=== PATIENT | male | born 1950 | race Caucasian/White ===

== ENCOUNTER 2017-08-24 11:49 | Observation (INO) | payer MEDICARE, OTHER ==
[~2017-08-24] VITALS: Ht 177.8 cm; Wt 100.0 kg
[~2017-08-24 11:49] MED LIST: LORT5TAB PO; OMEP20CA5 PO; PARO37.5 PO
[2017-08-24 11:56] VITALS: BP 196/99; PULSE 88; RESP 16; TEMP 98; O2SAT 98
--- NOTE | 2017-08-24 11:56 | PD ---
HPI Chief Complaint: Chest Pain Time Seen by Provider: 11:55 Travel History International Travel<30 days: No Contact w/Intl Traveler<30days: No Traveled to known affect area: No History of Present Illness HPI 66-year-old male came to the emergency room with left-sided chest pain that has been there since yesterday continuously. No aggravating or relieving factors identified. Patient describes the pain as a dull ache and rates it 5 out of 10. He says that the intensity is progressively worsening. He also started developing some dizziness and shortness of breath with it and hence decided to come in. Vital signs were stable. Patient had some similar symptoms a while ago but never came to the emergency room. He had a stress test done about 20 years ago which was negative. Does not have any history of coronary artery disease. He has history of hyperlipidemia but he is not taking any statin since he had some side effects when he was taking it and he stopped. No radiation of the pain. Patient is concerned from heart standpoint since there is a strong family history of heart attack. [facility] Past Medical History Narrative Medical List of his past medical, surgical, social and family history reviewed from the nursing note. Social History Tobacco Use: Yes Allergies-Medications (Allergen,Severity, Reaction): Coded Allergies: No Known Allergies (Verified Allergy, Unknown, 08/24/17) Comments No known drug allergies. Reported Meds & Prescriptions Reported Meds & Active Scripts Active No Active Prescriptions or Reported Medications Narrative Medication List of his home medications reviewed from the nursing note. Review of Systems Except as stated in HPI: all other systems reviewed are Neg Cardiovascular: Positive: Chest Pain or Discomfort Physical Exam Narrative GENERAL: Awake, alert, mild distress, anxious SKIN: Focused skin assessment warm/dry. HEAD: Atraumatic. Normocephalic. EYES: Pupils equal and round. No scleral icterus. No injection or drainage. ENT: No nasal bleeding or discharge. Mucous membranes pink and moist. NECK: Trachea midline. No JVD. CARDIOVASCULAR: Regular rate and rhythm. No murmur appreciated. RESPIRATORY: No accessory muscle use. Clear to auscultation. Breath sounds equal bilaterally. GASTROINTESTINAL: Abdomen soft, non-tender, nondistended. Hepatic and splenic margins not palpable. MUSCULOSKELETAL: No obvious deformities. No clubbing. No cyanosis. No edema. NEUROLOGICAL: Awake and alert. No obvious cranial nerve deficits. Motor grossly within normal limits. Normal speech. PSYCHIATRIC: Appropriate mood and affect; insight and judgment normal. Data Data Last Documented VS Vital Signs Date Time Temp Pulse Resp B/P (MAP) Pulse Ox O2 Delivery O2 Flow Rate FiO2 08/24/17 12:32 78 16 156/95 (115) 98 Room Air 139/85 (103) 08/24/17 11:56 98.0 Orders Orders Electrocardiogram (08/24/17 12:05) Basic Metabolic Panel (Bmp) (08/24/17 12:05) Complete Blood Count With Diff (08/24/17 12:05) Magnesium (Mg) (08/24/17 12:05) Prothrombin Time / Inr (Pt) (08/24/17 12:05) Troponin I (08/24/17 12:05) Ecg Monitoring (08/24/17 12:05) Bilateral Bp Monitoring (08/24/17 12:05) Iv Access Insert/Monitor (08/24/17 12:05) Oximetry (08/24/17 12:05) Oxygen Administration (08/24/17 12:05) Aspirin Chew (Aspirin Chew) (08/24/17 12:15) Sodium Chloride 0.9% Flush (Ns Flush) (08/24/17 12:15) Nitroglycerin Sl (Nitrostat Sl) (08/24/17 12:15) Chest, Pa & Lat (08/24/17 12:05) Admit Order (Ed Use Only) (08/24/17 13:11) Labs Laboratory Tests Test 08/24/17 12:27 White Blood Count 4.7 TH/MM3 Red Blood Count 4.99 MIL/MM3 Hemoglobin 14.4 GM/DL Hematocrit 44.3 % Mean Corpuscular Volume 88.7 FL Mean Corpuscular Hemoglobin 28.9 PG Mean Corpuscular Hemoglobin Concent 32.5 % Red Cell Distribution Width 13.1 % Platelet Count 162 TH/MM3 Mean Platelet Volume 8.1 FL Neutrophils (%) (Auto) 66.0 % Lymphocytes (%) (Auto) 21.5 % Monocytes (%) (Auto) 8.5 % Eosinophils (%) (Auto) 2.8 % Basophils (%) (Auto) 1.2 % Neutrophils # (Auto) 3.1 TH/MM3 Lymphocytes # (Auto) 1.0 TH/MM3 Monocytes # (Auto) 0.4 TH/MM3 Eosinophils # (Auto) 0.1 TH/MM3 Basophils # (Auto) 0.1 TH/MM3 CBC Comment DIFF FINAL Differential Comment Prothrombin Time 10.5 SEC Prothromb Time International Ratio 1.0 RATIO Blood Urea Nitrogen 14 MG/DL Creatinine 0.98 MG/DL Random Glucose 91 MG/DL Calcium Level 8.6 MG/DL Magnesium Level 2.3 MG/DL Sodium Level 141 MEQ/L Potassium Level 4.1 MEQ/L Chloride Level 109 MEQ/L Carbon Dioxide Level 25.3 MEQ/L Anion Gap 7 MEQ/L Estimat Glomerular Filtration Rate 77 ML/MIN Troponin I LESS THAN 0.02 NG/ML MDM Medical Decision Making Medical Screen Exam Complete: Yes Emergency Medical Condition: Yes Medical Record Reviewed: Yes Interpretation(s) Twelve-lead EKG was reviewed by me. Normal sinus rhythm, normal axis, nonspecific ST-T wave changes. Heart rate of 68 bpm. Differential Diagnosis ACS, non-STEMI Narrative Course 1 PM awaiting for the troponin. Rest of the blood test results are back and within normal limit. Chest x-ray appears to be within normal limits. Awaiting for the radiologist report. Patient was given 2 baby aspirins and 1 sublingual nitro. I have talked to him about admitting him in the chest pain center and he is agreeable to the decision. Procedures EKG Prior to Arrival: No Diagnosis Primary Impression: Chest pain Qualified Codes: R07.9 - Chest pain, unspecified Admitting Information Admitting Physician Requests: Observation Scripts No Active Prescriptions or Reported Meds Ivette Irving MD Aug 24, 2017 11:56
[2017-08-24] MEDS ORDERED: SODIUM CHLORIDE 0.9% FLUSH 10 ML FLUSH IVF PRN (12:15)
[2017-08-24] MEDS ORDERED: NITROGLYCERIN 0.4 MG SL 25 TABS/BTL SL ONE (12:15)
[2017-08-24] MEDS ORDERED: ASPIRIN 81 MG CHEW TAB PO ONE (12:15)
[2017-08-24 12:21] VITALS: O2SAT 98
[2017-08-24 12:32] VITALS: BP_SYST 139; BP_SYST 156; BP_DIAS 85; BP_DIAS 95; PULSE 78; RESP 16; O2SAT 98
[2017-08-24 12:38] LABS: AUTOMATED NEUTROPHIL # 3.1 TH/MM3 (1.8-7.7); BASOPHIL # 0.1 TH/MM3 (0-0.2); BASOPHIL % 1.2 % (0.0-2.0); EOSINOPHIL # 0.1 TH/MM3 (0-0.4); EOSINOPHIL % 2.8 % (0.0-4.0); HEMATOCRIT 44.3 % (39.0-51.0); HEMOGLOBIN 14.4 GM/DL (13.0-17.0); LYMPH % 21.5 % (9.0-44.0); MEAN CELL VOLUME 88.7 FL (80.0-100.0); MEAN CORPUSCULAR HEMOGLOBIN 28.9 PG (27.0-34.0); MEAN CORPUSCULAR HGB CONC 32.5 % (32.0-36.0); MEAN PLATELET VOLUME 8.1 FL (7.0-11.0); MONO % 8.5 % (0.0-8.0); MONOCYTE # 0.4 TH/MM3 (0-0.9); PLATELET COUNT 162 TH/MM3 (150-450); RED BLOOD COUNT 4.99 MIL/MM3 (4.50-5.90); RED CELL DISTRIBUTION WIDTH 13.1 % (11.6-17.2); WHITE BLOOD COUNT 4.7 TH/MM3 (4.0-11.0)
[2017-08-24 12:45] LABS: CHLORIDE 109 MEQ/L (98-107); SODIUM (NA) 141 MEQ/L (136-145)
[2017-08-24 12:47] LABS: CALCIUM 8.6 MG/DL (8.5-10.1)
[2017-08-24 12:48] LABS: BICARBONATE 25.3 MEQ/L (21.0-32.0); BLOOD UREA NITROGEN 14 MG/DL (7-18); GLUCOSE,RANDOM 91 MG/DL (74-106); MAGNESIUM 2.3 MG/DL (1.5-2.5); PROTHROMBIN TIME - PATIENT 10.5 SEC (9.8-11.6)
[2017-08-24 12:51] LABS: CREATININE 0.98 MG/DL (0.60-1.30); GLOMERULAR FILTRATION RATE 77 ML/MIN (>89)
[2017-08-24 12:56] LABS: TROPONIN I LESS THAN 0.02 NG/ML (0.02-0.05)
[2017-08-24] MEDS ORDERED: MORPHINE SULFATE 4 MG/ML INJ IV PUSH PRN (13:30)
[2017-08-24] MEDS ORDERED: ONDANSETRON HCL 4 MG/2 ML VIAL IV PUSH PRN (13:30)
[2017-08-24] MEDS ORDERED: ACETAMINOPHEN/HYDROcodone 325 MG/7.5 MG TAB PO PRN (13:30)
[2017-08-24] MEDS ORDERED: MORPHINE SULFATE 4 MG/ML INJ IV PUSH ONE (13:30)
[2017-08-24] MEDS ORDERED: ACETAMINOPHEN 500 MG CPLT PO PRN (13:30)
[2017-08-24] MEDS ORDERED: ONDANSETRON HCL 4 MG/2 ML VIAL IV PUSH ONE (13:30)
[2017-08-24] MEDS ORDERED: NITROGLYCERIN 0.4 MG SL 25 TABS/BTL SL PRN (13:30)
[2017-08-24] MEDS ORDERED: SODIUM CHLORIDE 0.9% FLUSH 10 ML FLUSH IV FLUSH PRN (13:30)
--- NOTE | 2017-08-24 13:44 | HHI.HP ---
[facility] Service [facility] Primary Care Physician No Primary Care Physician Admission Diagnosis Chest pain, rule out ACS Diagnoses: (1) Chest pain Diagnosis: Principal Chief Complaint: Chest pain Travel History International Travel<30 Days: No Contact w/Intl Traveler <30 Da: No Traveled to Known Affected Are: No History of Present Illness 66-year-old male with history of untreated hyperlipidemia who presented to the emergency department because of chest discomfort. Patient states that for the last 2 days he has had a constant crescendo type chest discomfort located in the left anterior chest that intermittently goes into his left shoulder. He states it is usually a 4/10 on a pain scale and can go as high as 6/10 on a pain scale. It has been relentless and has not improved with any medications. He states that it was persisted this morning and that he had an episode of nausea and lightheadedness every time he stood up so because of that reason he came to emergency department for evaluation. He denied any vomiting, diaphoresis, shortness of breath, dyspnea. Patient indicates that he has had previous cardiac workup done over 10 years ago where he indicates that they told him that he may have had a heart attack but could not find any damage. Patient had workup done emergency department and was unremarkable. It was recommended by ER physician that the patient be observed in the chest pain center for further recommendations Review of Systems Constitutional: COMPLAINS OF: Dizziness Cardiovascular: COMPLAINS OF: Chest pain Gastrointestinal: COMPLAINS OF: Nausea Except as stated in HPI: all other systems reviewed are Neg Past Family Social History Past Medical History Cervical radiculopathy Hyperlipidemia, untreated Past Surgical History Lumbar spine surgery Reported Medications No chronic medications Allergies: Coded Allergies: No Known Allergies (Verified Allergy, Unknown, 08/24/17) Family History Reviewed and significant for father with heart disease, mother at age 70 from myocardial infarction, he has 2 sisters and 2 brothers all of which have heart disease. Social History Patient denies any tobacco, alcohol or illicit drug Physical Exam Vital Signs Vital Signs Date Time Temp Pulse Resp B/P (MAP) Pulse Ox O2 Delivery O2 Flow Rate FiO2 08/24/17 12:32 78 16 156/95 (115) 98 Room Air 139/85 (103) 08/24/17 12:21 98 Room Air 08/24/17 12:21 98 Room Air 08/24/17 11:58 98 Room Air 08/24/17 11:56 98.0 88 16 196/99 (131) 98 Physical Exam GENERAL: Well-developed, well-nourished, in no acute distress. alert and orientated HEENT: Head is normocephalic without any lesions or masses noted. Facial features are symmetric. Eyes: Pupils equal round reactive to light. Extraocular muscles are intact. Conjunctivae were clear. Oropharyngeal: Pharynx without any erythema edema. Tongue is midline without deviation. Buccal mucosa is moist without any masses or lesions NECK: Supple without any masses. Trachea midline no deviation. No JVD, no bruits are appreciated CARDIAC: Regular rhythm, regular rate. S1/S2 are heard. No murmurs gallops or rubs. LUNGS: Clear to auscultation bilaterally. No wheeze, rhonchi or rales. No use of accessory muscles on inspiration or expiration. ABDOMEN: Soft, nontender. Nondistended. Bowel sounds heard in all 4 quadrants. No organomegaly or masses. Negative rebound, negative guarding EXTREMITIES: No edema, pulses are equal bilaterally. No cyanosis or clubbing NEUROLOGY: Mood and affect appear appropriate. Cranial nerves II through XII grossly intact. Muscle strength 5/5 in upper and lower extremities bilaterally. Deep tendon reflexes are 2+ in upper and lower extremities bilaterally. Laboratory Laboratory Tests Test 08/24/17 12:27 White Blood Count 4.7 Red Blood Count 4.99 Hemoglobin 14.4 Hematocrit 44.3 Mean Corpuscular Volume 88.7 Mean Corpuscular Hemoglobin 28.9 Mean Corpuscular Hemoglobin Concent 32.5 Red Cell Distribution Width 13.1 Platelet Count 162 Mean Platelet Volume 8.1 Neutrophils (%) (Auto) 66.0 Lymphocytes (%) (Auto) 21.5 Monocytes (%) (Auto) 8.5 Eosinophils (%) (Auto) 2.8 Basophils (%) (Auto) 1.2 Neutrophils # (Auto) 3.1 Lymphocytes # (Auto) 1.0 Monocytes # (Auto) 0.4 Eosinophils # (Auto) 0.1 Basophils # (Auto) 0.1 CBC Comment DIFF FINAL Differential Comment Prothrombin Time 10.5 Prothromb Time International Ratio 1.0 Blood Urea Nitrogen 14 Creatinine 0.98 Random Glucose 91 Calcium Level 8.6 Magnesium Level 2.3 Sodium Level 141 Potassium Level 4.1 Chloride Level 109 Carbon Dioxide Level 25.3 Anion Gap 7 Estimat Glomerular Filtration Rate 77 Troponin I LESS THAN 0.02 Result Diagram: 08/24/17 1227 08/24/17 1227 Caprini VTE Risk Assessment Caprini VTE Risk Assessment: No/Low Risk (score <= 1) Caprini Risk Assessment Model Point Value = 1 Point Value = 2 Point Value = 3 Point Value = 5 Age 41-60 Minor surgery BMI > 25 kg/m2 Swollen legs Varicose veins or History of unexplained or recurrent spontaneous Oral contraceptives or hormone replacement Sepsis (< 1 month) Serious lung disease, including pneumonia (< 1 month) Abnormal pulmonary function Acute myocardial infarction Congestive heart failure (< 1 month) History of inflammatory bowel disease Medical patient at bed rest Age 61-74 Arthroscopic surgery Major open surgery (> 45 min) Laparoscopic surgery (> 45 min) Malignancy Confined to bed (> 72 hours) Immobilizing plaster cast Central venous access Age >= 75 History of VTE Family history of VTE Factor V Leiden Prothrombin [id number] Lupus anticoagulant Anticardiolipin antibodies Elevated serum homocysteine Heparin-induced thrombocytopenia Other congenital or acquired thrombophilia Stroke (< 1 month) Elective arthroplasty Hip, pelvis, or leg fracture Acute spinal cord injury (< 1 month) Prophylaxis Regimen Total Risk Factor Score Risk Level Prophylaxis Regimen 0-1 Low Early ambulation 2 Moderate Order ONE of the following: *Sequential Compression Device (SCD) *Heparin 5000 units SQ BID 3-4 Higher Order ONE of the following medications: *Heparin 5000 units SQ TID *Enoxaparin/Lovenox 40 mg SQ daily (WT < 150 kg, CrCl > 30 mL/min) *Enoxaparin/Lovenox 30 mg SQ daily (WT < 150 kg, CrCl > 10-29 mL/min) *Enoxaparin/Lovenox 30 mg SQ BID (WT < 150 kg, CrCl > 30 mL/min) AND/OR *Sequential Compression Device (SCD) 5 or more Highest Order ONE of the following medications: *Heparin 5000 units SQ TID (Preferred with Epidurals) *Enoxaparin/Lovenox 40 mg SQ daily (WT < 150 kg, CrCl > 30 mL/min) *Enoxaparin/Lovenox 30 mg SQ daily (WT < 150 kg, CrCl > 10-29 mL/min) *Enoxaparin/Lovenox 30 mg SQ BID (WT < 150 kg, CrCl > 30 mL/min) AND *Sequential Compression Device (SCD) Assessment and Plan Assessment and Plan Chest pain, Patient with increased risk factors to include age, hyperlipidemia, family history of heart disease Thus far patient has been ruled out for acute coronary event with cardiac enzymes are negative since this has been a constant pain for over 2 days EKG did reveal myself and did show sinus rhythm without any ST elevations Myocardial perfusion study did not indicate any underlying ischemia Continue aspirin, nitroglycerin as needed, [place]/morphine for pain Hyperlipidemia, untreated Patient counseled on lifestyle modifications, patient states that he cannot take medications due to medication side effect DVT prevention Sequential compression devices Discharge disposition discharge home in stable condition Activity: Ad humza. Diet: Healthy heart diet Medication per medication reconciliation Follow-up with primary medical doctor in 1 week Problem Qualifiers (1) Chest pain: Qualified Codes: R07.9 - Chest pain, unspecified Yossi Howard Aug 24, 2017 13:44
--- NOTE | 2017-08-24 14:32 | RADRPT ---
EXAM DATE/TIME: 08/24/2017 12:17 [facility] COMPARISON: No previous studies available for comparison. INDICATIONS : Chest pain. MEDICAL HISTORY : None. SURGICAL HISTORY : None. ENCOUNTER: Initial ACUITY: 1 day PAIN SCORE: 6/10 LOCATION: chest Center FINDINGS: PA and lateral views of the chest demonstrate a normal-sized cardiac silhouette. There is no effusion , consolidation, or pneumothorax. The bones and soft tissues demonstrate no acute abnormality. CONCLUSION: No acute cardiopulmonary abnormality is identified. Satish Tiwari MD on August 24, 2017 at 14:28 Board Certified Radiologist. This report was verified electronically.
[2017-08-24 14:47] VITALS: PULSE 48
[2017-08-24 14:55] LABS: TROPONIN I LESS THAN 0.02 NG/ML (0.02-0.05)
[2017-08-24 15:00] VITALS: BP 148/79; PULSE 50; RESP 20; TEMP 96.1; O2SAT 97
[2017-08-24] MEDS ORDERED: REGADENOSON INJ 0.4 MG/5 ML SYR IV ONE (16:01)
--- NOTE | 2017-08-24 17:18 | RADRPT ---
EXAM DATE/TIME: 08/24/2017 15:39 [facility] COMPARISON: No previous studies available for comparison. INDICATIONS : Chest pain. Angina. DOSE: 26.2 mCi Tc99m Myoview at stress. 8.7 mCi Tc99m Myoview at rest. 0.4 mg Lexiscan STRESS SYMPTOMS: None noted. EJECTION FRACTION: 62% MEDICAL HISTORY : Hyperlipidemia. SURGICAL HISTORY : Lumbar spine surgery. ENCOUNTER: Initial ACUITY: 2 days PAIN SCALE: 5/10 LOCATION: Left chest TECHNIQUE: The patient underwent pharmacologic stress with infusion of prescribed dose. Continuous ECG tracing was monitored during stress. Gated SPECT imaging was performed after stress and conventional SPECT i maging was performed at rest. The examination was performed on a SPECT/CT scanner, both attenuation and non-corrected datasets were reviewed. FINDINGS: DISTRIBUTION: The maximum perfused segment at stress is in the anteroseptal wall. PERFUSION STUDY: The pattern of perfusion at stress is within normal limits. GATED STUDY: There is intact wall motion and thickening without hypokinetic or dyskinetic segments. CONCLUSION: 1. No significant stress-induced ischemia. 2. No focal wall motion abnormality with EF of 62%. RISK CATEGORY: Low (<1% Annual Mortality Rate) Kashmir De La Cruz MD on August 24, 2017 at 17:14 Board Certified Radiologist. This report was verified electronically.
[2017-08-24 17:21] VITALS: O2SAT 97
--- NOTE | 2017-08-24 17:37 | HHI.DCPOC ---
Discharge Care Plan Diagnosis: (1) Chest pain Goals to Promote Your Health * To prevent worsening of your condition and complications * To maintain your health at the optimal level Directions to Meet Your Goals Take your medications as prescribed Follow your dietary instruction Follow activity as directed Keep your appointments as scheduled Take your immunizations and boosters as scheduled If your symptoms worsen call your PCP, if no PCP go to Urgent Care Center or Emergency Room Smoking is Dangerous to Your Health. Avoid second hand smoke Call the 24-hour hour crisis hotline for domestic abuse at Yossi Howard Aug 24, 2017 17:37
--- NOTE | 2017-08-24 17:57 | TR ---
Date Performed: 08/24/2017 Time Performed: 16:15:05 DOCTOR: Susan Reese DRUG LIST: CLINICAL HISTORY: ANGINA REASON FOR TEST: Angina REASON FOR ENDING: OBSERVATION: CONCLUSION: Lexiscan stress test was performed under standard four minute protocol. Radionuclid e was injected one minute prior to ending the test. No electrocardiographic abormalities were present to suggest ischemia. Nuclear imaging and interpretation are pending. COMMENTS:
[2017-08-24 18:08] LABS: TROPONIN I LESS THAN 0.02 NG/ML (0.02-0.05)
[2017-08-24] MEDS ORDERED: SODIUM CHLORIDE 0.9% FLUSH 10 ML FLUSH IV FLUSH SCH (21:00)
[2017-08-25] MEDS ORDERED: ASPIRIN 325 MG TAB PO SCH (09:00)
--- NOTE | 2017-08-26 11:22 | EKG ---
Date Performed: 08/24/2017 Time Performed: 11:52:17 PTAGE: 66 years EKG: NORMAL Sinus rhythm Slight intraventricular conduction delay NORMAL ECG NO PREVIOUS TRACING DOCTOR: Dakota Messer Interpretating Date/Time 08/26/2017 12:45:36
--- NOTE | 2017-08-26 11:22 | EKG ---
Date Performed: 08/24/2017 Time Performed: 14:30:14 PTAGE: 66 years EKG: Sinus bradycardia Slight intraventricular conduction delay NORMAL ECG Since PREVIOUS TRACING , no significant change noted PREVIOUS TRACIN08/24/2017 11.52 DOCTOR: Dakota Messer Interpretating Date/Time 08/26/2017 11:22:25
--- NOTE | 2017-08-26 11:23 | EKG ---
Date Performed: 08/24/2017 Time Performed: 17:20:29 PTAGE: 66 years EKG: SINUS BRADYCARDIA SLIGHT INTRAVENTRICULAR CONDUCTION DELAY BORDERLINE ECG Since PREVIOUS TRACING , no significant change noted PREVIOUS TRACIN08/24/2017 14.30 DOCTOR: Dakota Messer Interpretating Date/Time 08/26/2017 11:22:43
== END 2017-08-24 18:30 | disposition home or self-care (01) ==
LOC: PHED 11:49 → PHEDA 13:11 → PH3B 13:46
PROVIDERS: ADMIT Hospitalist; ATTEND Hospitalist
DX: R07.89 Other chest pain (principal); E78.5 Hyperlipidemia, unspecified; R11.0 Nausea; R42 Dizziness and giddiness; R00.1 Bradycardia, unspecified; Z82.49 Family history of ischemic heart disease and other diseases of the circulatory system
CPT/HCPCS: 71046; 78452; 80048; 82550; 82552; 83735; 84484; 85025; 85610; 93005; 93017; 96374; 96375; 99285; A9502; G0378; J2270; J2405; J2785

== ENCOUNTER → 2017-10-11 | Outpatient (CLI) | payer MEDICARE, OTHER | LOC: HRSP 12:05 | PROVIDERS: ATTEND Internal Medicine Pulmonary Disease | DX: R06.02 Shortness of breath (principal) | CPT/HCPCS: 36600; 82805; 94060; 94618; 94726; 94729 ==